=== PATIENT | female | born 1955 | race Asian ===

== ENCOUNTER 2016-05-09 13:33 | Emergency (ER) | payer MEDICAID, OTHER ==
[~2016-05-09] VITALS: Ht 165.1 cm; Wt 73.6 kg
[~2016-05-09 13:33] MED LIST: ACET-784 PO; HYDR12.530 PO; LISI-618 PO; METF500T4 PO
[2016-05-09 13:46] LABS: GLUCOSE,POINT OF CARE 266 MG/DL (70-110)
[2016-05-09] MEDS ORDERED: CloNIDine HCL 0.1 MG TABLET PO ONE (15:00)
[2016-05-09 15:11] LABS: BASOPHILS % (AUTO) 0.8 % (0.0-2.0); EOSINOPHILS % (AUTO) 1.6 % (1.0-6.0); HEMATOCRIT 40.6 % (36-46); HEMOGLOBIN 13.4 g/dL (12.0-16.0); LYMPHOCYTES # (AUTO) 2.3 K/uL (1.0-4.8); LYMPHOCYTES % (AUTO) 29.5 % (22.0-44.0); MEAN CORPUSCULAR HEMOGLOBIN 27.7 pg (26.0-34.0); MEAN CORPUSCULAR HGB CONC 33.1 G/dL (31.0-37.0); MEAN CORPUSCULAR VOLUME 84 fL (80-100); MONOCYTES # (AUTO) 0.5 K/uL (0.1-1.0); MONOCYTES % (AUTO) 6.1 % (2.0-9.0); NEUTROPHILS # (AUTO) 4.8 K/uL (1.8-7.7); PLATELET COUNT (AUTO) 302 K/uL (150-450); RED BLOOD CELL COUNT(AUTO) 4.85 MIL/uL (4.00-5.20); RED CELL DISTRIBUTION WIDTH 12.6 % (11.5-14.5); WHITE BLOOD COUNT (AUTO) 7.8 K/uL (4.5-11.0)
[2016-05-09 15:18] LABS: ANION GAP 10 mmol/L (8-16); CALCIUM, TOTAL 9.2 mg/dL (8.8-10.5); CARBON DIOXIDE 26 mmol/L (22-29); CHLORIDE 101 mmol/L (98-107); GLOMERULAR FILTR. RATE CALC > 60 mL/min (>60); POTASSIUM 4.2 mmol/L (3.5-5.1); SODIUM SERUM 137 mmol/L (136-145); UREA NITROGEN, BLOOD 18 mg/dL (7-18)
[2016-05-09 15:24] LABS: ALANINE AMINOTRANSFERASE 24 U/L (12-78); ALBUMIN 3.7 g/dL (3.4-5.0); ASPARTATE AMINOTRANSFERASE 15 U/L (15-37); BILIRUBIN,TOTAL 0.3 mg/dL (0.1-1.0); TOTAL PROTEIN, SERUM 7.6 g/dL (6.4-8.2)
[2016-05-09 15:26] LABS: APPEARANCE,URINE CLEAR (CLEAR); GLUCOSE, URINE (UA) >=1000 mg/dL (NEGATIVE); KETONES,URINE NEGATIVE (NEGATIVE); LEUKOCYTE ESTERASE ,URINE NEGATIVE (NEGATIVE); OCCULT BLOOD,URINE NEGATIVE (NEGATIVE); PROTEIN,URINE POS 1+ (NEGATIVE)
[2016-05-09 15:40] LABS: SQUAMOUS EPITHELIAL CELL,UR Few /LPF (None Seen)
[2016-05-09 15:41] LABS: WBC,URINE 0-2 /HPF (0-5)
[2016-05-09 15:42] LABS: RBC,URINE None Seen /HPF (0-2)
[2016-05-09 16:06] VITALS: BP 123/61
[2016-05-09] MEDS ORDERED: ACETAMINOPHEN 325 MG TABLET PO ONE (16:45)
== END 2016-05-09 17:00 | disposition home or self-care (01) ==
LOC: EMS 13:35
DX: I10 Essential (primary) hypertension (principal); R42 Dizziness and giddiness; E11.9 Type 2 diabetes mellitus without complications; G43.909 Migraine, unspecified, not intractable, without status migrainosus
CPT/HCPCS: 70450; 71020; 82962; 93005; 99285

== ENCOUNTER 2017-03-08 10:58 | Emergency (ER) | payer MEDICAID ==
[~2017-03-08] VITALS: Ht 152.4 cm; Wt 70.5 kg
[2017-03-08 11:18] LABS: GLUCOSE,POINT OF CARE 345 MG/DL (70-110)
[2017-03-08] MEDS ORDERED: HydrALAZINE HCL 20 MG/ML VIAL IVP ONE ×2 (12:15→13:00)
[2017-03-08] MEDS ORDERED: SODIUM CHLORIDE 0.9% 1,000 ML IV ONE (12:15)
[2017-03-08 12:18] LABS: BASOPHILS % (AUTO) 0.5 % (0.0-2.0); EOSINOPHILS % (AUTO) 1.5 % (1.0-6.0); HEMATOCRIT 42.2 % (36-46); HEMOGLOBIN 14.3 g/dL (12.0-16.0); LYMPHOCYTES # (AUTO) 2.4 K/uL (1.0-4.8); MEAN CORPUSCULAR HEMOGLOBIN 28.9 pg (26.0-34.0); MEAN CORPUSCULAR HGB CONC 33.9 G/dL (31.0-37.0); MEAN CORPUSCULAR VOLUME 85 fL (80-100); MONOCYTES # (AUTO) 0.5 K/uL (0.1-1.0); MONOCYTES % (AUTO) 5.5 % (2.0-9.0); NEUTROPHILS # (AUTO) 6.2 K/uL (1.8-7.7); NEUTROPHILS % (AUTO) 66.5 % (40.0-70.0); PLATELET COUNT (AUTO) 285 K/uL (150-450); RED BLOOD CELL COUNT(AUTO) 4.96 MIL/uL (4.00-5.20); RED CELL DISTRIBUTION WIDTH 13.4 % (11.5-14.5); WHITE BLOOD COUNT (AUTO) 9.3 K/uL (4.5-11.0)
[2017-03-08 12:33] LABS: ANION GAP 11 mmol/L (8-16); CALCIUM, TOTAL 9.3 mg/dL (8.8-10.5); CARBON DIOXIDE 26 mmol/L (22-29); CHLORIDE 97 mmol/L (98-107); CREATININE 0.83 mg/dL (0.60-1.30); GLOMERULAR FILTR. RATE CALC > 60 mL/min (>60); POTASSIUM 4.2 mmol/L (3.5-5.1); SODIUM SERUM 134 mmol/L (136-145); UREA NITROGEN, BLOOD 16 mg/dL (7-18)
[2017-03-08 12:39] LABS: ALANINE AMINOTRANSFERASE 26 U/L (12-78); ALBUMIN 3.8 g/dL (3.4-5.0); ASPARTATE AMINOTRANSFERASE 15 U/L (15-37); BILIRUBIN,TOTAL 0.3 mg/dL (0.1-1.0); TOTAL PROTEIN, SERUM 7.9 g/dL (6.4-8.2)
[2017-03-08 13:16] LABS: APPEARANCE,URINE CLEAR (CLEAR); GLUCOSE, URINE (UA) >=1000 mg/dL (NEGATIVE); KETONES,URINE NEGATIVE (NEGATIVE); LEUKOCYTE ESTERASE ,URINE TRACE (NEGATIVE); OCCULT BLOOD,URINE NEGATIVE (NEGATIVE); PROTEIN,URINE SEE CONFIRM (NEGATIVE)
[2017-03-08 13:30] LABS: ADD UA MICROSCOPIC YES
[2017-03-08 13:31] LABS: RBC,URINE 0-2 /HPF (0-2); SQUAMOUS EPITHELIAL CELL,UR Many /LPF (None Seen); SULFOSALICYLIC ACID,URINE 1+ (Negative); WBC,URINE 0-2 /HPF (0-5)
[2017-03-08 13:38] LABS: INFLUENZA TYPE B NEGATIVE FOR TYPE B (NEGATIVE)
[2017-03-08] MEDS ORDERED: KETOROLAC TROMETHAMINE 30 MG/ML VIAL IVP ONE (14:30)
[2017-03-08] MEDS ORDERED: ACETAMINOPHEN 500 MG TABLET PO ONE ×2 (14:30→17:00)
[2017-03-08 14:52] LABS: GLUCOSE,POINT OF CARE 271 MG/DL (70-110)
[2017-03-08] MEDS ORDERED: INSULIN REGULAR, HUMAN 100 UNITS/ML IVP ONE (15:00)
[2017-03-08 16:27] LABS: GLUCOSE COMMENT 2 Doctor Notified; GLUCOSE,POINT OF CARE 288 MG/DL (70-110)
[2017-03-08] MEDS ORDERED: OSELTAMIVIR PHOSPHATE 75 MG CAPSULE PO ONE (16:45)
[2017-03-08 16:50] VITALS: BP 172/83
[2017-03-08] MEDS ORDERED: MetFORMIN HCL 500 MG TABLET PO ONE (17:00)
== END 2017-03-08 17:08 | disposition home or self-care (01) ==
LOC: EMS 11:01
DX: I10 Essential (primary) hypertension (principal); R42 Dizziness and giddiness; R10.11 Right upper quadrant pain; E11.9 Type 2 diabetes mellitus without complications; G43.909 Migraine, unspecified, not intractable, without status migrainosus
CPT/HCPCS: 36415; 71010; 80053; 81001; 82948; 82962; 84484; 85025; 87804; 93005; 96361; 96374; 96375; 99285; J0360; J1815; J1885; J7030

== ENCOUNTER 2017-04-24 16:24 | Emergency (ER) | payer MEDICAID ==
[~2017-04-24] VITALS: Ht 165.1 cm; Wt 70.0 kg
[~2017-04-24 16:24] MED LIST changes: -ACET-784 PO
[2017-04-24 16:48] LABS: GLUCOSE,POINT OF CARE 433 MG/DL (70-110)
[2017-04-24 18:29] LABS: ALANINE AMINOTRANSFERASE 24 U/L (12-78); ALBUMIN 3.7 g/dL (3.4-5.0); ALKALINE PHOSPHATASE 98 U/L (46-116); ANION GAP 8 mmol/L (8-16); ASPARTATE AMINOTRANSFERASE 10 U/L (15-37); BILIRUBIN,TOTAL 0.4 mg/dL (0.1-1.0); CALCIUM, TOTAL 9.4 mg/dL (8.8-10.5); CARBON DIOXIDE 30 mmol/L (22-29); CHLORIDE 98 mmol/L (98-107); CREATININE 0.79 mg/dL (0.60-1.30); GLOMERULAR FILTR. RATE CALC > 60 mL/min (>60); POTASSIUM 4.3 mmol/L (3.5-5.1); SODIUM SERUM 136 mmol/L (136-145); TOTAL PROTEIN, SERUM 7.5 g/dL (6.4-8.2); UREA NITROGEN, BLOOD 17 mg/dL (7-18)
[2017-04-24 18:38] LABS: GLUCOSE,RANDOM 403 mg/dL (70-110)
[2017-04-24 18:49] LABS: BASOPHILS % (AUTO) 0.7 % (0.0-2.0); EOSINOPHILS % (AUTO) 2.1 % (1.0-6.0); HEMATOCRIT 38.8 % (36-46); HEMOGLOBIN 13.3 g/dL (12.0-16.0); LYMPHOCYTES # (AUTO) 2.9 K/uL (1.0-4.8); LYMPHOCYTES % (AUTO) 38.7 % (22.0-44.0); MEAN CORPUSCULAR HEMOGLOBIN 28.2 pg (26.0-34.0); MEAN CORPUSCULAR HGB CONC 34.3 G/dL (31.0-37.0); MEAN CORPUSCULAR VOLUME 82 fL (80-100); MONOCYTES # (AUTO) 0.6 K/uL (0.1-1.0); MONOCYTES % (AUTO) 8.3 % (2.0-9.0); NEUTROPHILS # (AUTO) 3.8 K/uL (1.8-7.7); NEUTROPHILS % (AUTO) 50.2 % (40.0-70.0); PLATELET COUNT (AUTO) 264 K/uL (150-450); RED BLOOD CELL COUNT(AUTO) 4.72 MIL/uL (4.00-5.20); RED CELL DISTRIBUTION WIDTH 12.5 % (11.5-14.5)
[2017-04-24] MEDS ORDERED: LISINOPRIL 10 MG TABLET PO ONE (19:00)
[2017-04-24] MEDS ORDERED: INSULIN REGULAR, HUMAN 100 UNITS/ML SQ ONE (19:00)
[2017-04-24] MEDS ORDERED: SODIUM CHLORIDE 0.9% 1,000 ML IV ONE (19:00)
[2017-04-24 19:19] LABS: INR 0.9 (0.9-1.1); PROTHROMBIN TIME 9.6 SEC (9.4-11.6)
[2017-04-24 19:28] LABS: CREATINE KINASE, TOTAL 109 U/L (26-192)
[2017-04-24 19:53] LABS: CREATINE KINASE MB 1.2 ng/mL (0-5)
[2017-04-24 20:08] LABS: APPEARANCE,URINE CLEAR (CLEAR); BILIRUBIN,URINE NEGATIVE (NEGATIVE); GLUCOSE, URINE (UA) >=1000 mg/dL (NEGATIVE); KETONES,URINE NEGATIVE (NEGATIVE); LEUKOCYTE ESTERASE ,URINE NEGATIVE (NEGATIVE); NITRATE,URINE NEGATIVE (NEGATIVE); OCCULT BLOOD,URINE NEGATIVE (NEGATIVE); PROTEIN,URINE TRACE (NEGATIVE); UROBILINOGEN,URINE 0.2 mg/dL (<=1.0)
[2017-04-24 20:22] LABS: BACTERIA,URINE Rare /HPF (None Seen); RBC,URINE None Seen /HPF (0-2); SQUAMOUS EPITHELIAL CELL,UR Few /LPF (None Seen)
[2017-04-24 20:48] LABS: GLUCOSE,POINT OF CARE 256 MG/DL (70-110)
[2017-04-24] MEDS ORDERED: ACETAMINOPHEN 325 MG TABLET PO ONE (21:00)
[2017-04-24] MEDS ORDERED: FAMOTIDINE 20 MG TABLET PO ONE (21:00)
[2017-04-24 21:15] VITALS: BP 177/91
== END 2017-04-24 21:24 | disposition home or self-care (01) ==
LOC: EMS 16:25
DX: E11.9 Type 2 diabetes mellitus without complications (principal); I10 Essential (primary) hypertension; R42 Dizziness and giddiness
CPT/HCPCS: 36415; 71045; 80053; 81001; 82550; 82553; 82962; 83880; 84484; 85025; 85610; 85730; 93005; 96360; 96372; 99285; J1815; J7030

== ENCOUNTER 2019-02-07 12:28 | Emergency (ER) | payer MEDICAID ==
[~2019-02-07] VITALS: Ht 154.9 cm; Wt 79.5 kg
[~2019-02-07 12:28] MED LIST changes: +INSLAN SQ; +METF-960 PO; -METF500T4 PO
[2019-02-07 12:55] LABS: GLUCOSE,POINT OF CARE 252 MG/DL (70-110)
[2019-02-07 13:51] LABS: EOSINOPHILS % (AUTO) 2.8 % (1.0-6.0); HEMATOCRIT 36.5 % (36-46); HEMOGLOBIN 12.2 g/dL (12.0-16.0); LYMPHOCYTES # (AUTO) 2.7 K/uL (1.0-4.8); LYMPHOCYTES % (AUTO) 35.5 % (22.0-44.0); MEAN CORPUSCULAR HEMOGLOBIN 28.1 pg (26.0-34.0); MEAN CORPUSCULAR HGB CONC 33.4 G/dL (31.0-37.0); MEAN CORPUSCULAR VOLUME 84 fL (80-100); MONOCYTES # (AUTO) 0.6 K/uL (0.1-1.0); MONOCYTES % (AUTO) 8.1 % (2.0-9.0); NEUTROPHILS # (AUTO) 3.9 K/uL (1.8-7.7); NEUTROPHILS % (AUTO) 52.6 % (40.0-70.0); PLATELET COUNT (AUTO) 294 K/uL (150-450); RED BLOOD CELL COUNT(AUTO) 4.34 MIL/uL (4.00-5.20); RED CELL DISTRIBUTION WIDTH 13.2 % (11.5-14.5)
[2019-02-07 14:06] LABS: APPEARANCE,URINE CLEAR (CLEAR); BILIRUBIN,URINE NEGATIVE (NEGATIVE); GLUCOSE, URINE (UA) >=1000 mg/dL (NEGATIVE); KETONES,URINE NEGATIVE (NEGATIVE); LEUKOCYTE ESTERASE ,URINE NEGATIVE (NEGATIVE); NITRATE,URINE NEGATIVE (NEGATIVE); OCCULT BLOOD,URINE NEGATIVE (NEGATIVE); PH,URINE 6.5 (5.0-8.0); PROTEIN,URINE SEE CONFIRM (NEGATIVE); UROBILINOGEN,URINE 0.2 mg/dL (<=1.0)
[2019-02-07 14:19] LABS: BACTERIA,URINE None Seen /HPF (None Seen); RBC,URINE None Seen /HPF (0-2); SULFOSALICYLIC ACID,URINE 1+ (Negative); WBC,URINE None Seen /HPF (0-5)
[2019-02-07 14:23] LABS: CALCIUM, TOTAL 9.1 mg/dL (8.8-10.5); CREATININE 1.11 mg/dL (0.60-1.30); POTASSIUM 5.2 mmol/L (3.5-5.1)
[2019-02-07 14:41] LABS: B-TYPE NATRIURETIC PEPTIDE 130 pg/mL (0-100)
[2019-02-07 14:49] LABS: ALBUMIN 3.7 g/dL (3.4-5.0); BILIRUBIN,TOTAL 0.3 mg/dL (0.1-1.0); TOTAL PROTEIN, SERUM 7.6 g/dL (6.4-8.2)
[2019-02-07 15:07] LABS: CREATINE KINASE, TOTAL ONLY 167 U/L (26-192)
[2019-02-07 17:17] VITALS: BP 136/79
== END 2019-02-07 17:21 | disposition home or self-care (01) ==
LOC: EMS 12:29
DX: G47.00 Insomnia, unspecified (principal); F41.9 Anxiety disorder, unspecified; F43.9 Reaction to severe stress, unspecified; M79.10 Myalgia, unspecified site; E11.65 Type 2 diabetes mellitus with hyperglycemia; G43.909 Migraine, unspecified, not intractable, without status migrainosus; I10 Essential (primary) hypertension; Z90.710 Acquired absence of both cervix and uterus; Z79.84 Long term (current) use of oral hypoglycemic drugs; Z79.4 Long term (current) use of insulin; Z79.899 Other long term (current) drug therapy
CPT/HCPCS: 93005

== ENCOUNTER 2023-04-25 10:42 | Inpatient (IN) | payer MEDICARE, MEDICAID ==
[~2023-04-25] VITALS: Ht 149.9 cm; Wt 80.0 kg
[~2023-04-25 10:42] MED LIST changes: -HYDR12.530 PO; +HYDR12.56 PO; -LISI-618 PO; +LISI20TA24 PO; +METF-1211 PO; -METF-960 PO
[2023-04-25] MEDS ORDERED: CLOP75TA60 PO (11:05)
[2023-04-25] MEDS ORDERED: NITR0.4T52 SL (11:05)
[2023-04-25] MEDS ORDERED: PANT-31 PO (11:05)
[2023-04-25] MEDS ORDERED: FURO40 PO (11:05)
[2023-04-25] MEDS ORDERED: ATOR40TA28 PO (11:05)
[2023-04-25] MEDS ORDERED: ESCI-8 PO (11:05)
[2023-04-25] MEDS ORDERED: INSU100V SQ ×2 (11:05)
[2023-04-25] MEDS ORDERED: BUSP5TAB20 PO (11:05)
[2023-04-25] MEDS ORDERED: DULA1.5P SQ (11:07)
[2023-04-25] MEDS ORDERED: SODI650T33 PO (11:07)
[2023-04-25 11:17] LABS: BASOPHILS % (AUTO) 0.6 % (0.0-2.0); EOSINOPHILS % (AUTO) 0.5 % (1.0-6.0); HEMATOCRIT 33.4 % (36-46); HEMOGLOBIN 10.9 g/dL (12.0-16.0); LYMPHOCYTES # (AUTO) 0.8 K/uL (1.0-4.8); MEAN CORPUSCULAR HEMOGLOBIN 28.1 pg (26.0-34.0); MEAN CORPUSCULAR HGB CONC 32.5 G/dL (31.0-37.0); MEAN CORPUSCULAR VOLUME 86 fL (80-100); MONOCYTES # (AUTO) 0.7 K/uL (0.1-1.0); MONOCYTES % (AUTO) 6.1 % (2.0-9.0); NEUTROPHILS # (AUTO) 9.9 K/uL (1.8-7.7); PLATELET COUNT (AUTO) 360 K/uL (150-450); RED BLOOD CELL COUNT(AUTO) 3.87 MIL/uL (4.00-5.20); RED CELL DISTRIBUTION WIDTH 15.6 % (11.5-14.5); WHITE BLOOD COUNT (AUTO) 11.5 K/uL (4.5-11.0)
[2023-04-25 11:20] LABS: NEUTROPHILS % (AUTO) 85.8 % (40.0-70.0)
[2023-04-25 11:30] LABS: PROTHROMBIN TIME 10.2 SEC (9.4-11.6)
[2023-04-25 11:37] LABS: CALCIUM, TOTAL 8.2 mg/dL (8.8-10.5); CREATININE 2.54 mg/dL (0.60-1.30); POTASSIUM 3.1 mmol/L (3.5-5.1); TROPONIN I-HIGH SENSITIVITY 43 ng/L (<51)
[2023-04-25 11:41] LABS: ALBUMIN 1.7 g/dL (3.4-5.0); BILIRUBIN,TOTAL 0.2 mg/dL (0.1-1.0)
[2023-04-25] MEDS ORDERED: BISACODYL 10 MG RECTAL RECTAL SUPPOSITORY PR PRN (13:00)
[2023-04-25] MEDS ORDERED: ONDANSETRON HCL 4 MG/2 ML VIAL IVP PRN (13:00)
[2023-04-25] MEDS ORDERED: AMLO5TAB66 PO (13:02)
[2023-04-25] MEDS ORDERED: EMPA10TA3 PO (13:02)
[2023-04-25] MEDS ORDERED: SODI10PO2 PO (13:02)
[2023-04-25] MEDS ORDERED: METO50 PO (13:02)
[2023-04-25] MEDS: FUROSEMIDE 40 MG/4 ML VIAL IVP ONE (13:14)
[2023-04-25] MEDS: POTASSIUM CHLORIDE 10% 40 MEQ/30 ML LIQUID UDCUP PO ONE (14:08)
[2023-04-25 15:53] LABS: APPEARANCE,URINE CLEAR (CLEAR); BILIRUBIN,URINE NEGATIVE (NEGATIVE); COLOR,URINE LIGHT YELLOW (YELLOW); GLUCOSE, URINE (UA) 300-500 mg/dL (NEGATIVE); KETONES,URINE NEGATIVE (NEGATIVE); LEUKOCYTE ESTERASE ,URINE NEGATIVE (NEGATIVE); NITRATE,URINE NEGATIVE (NEGATIVE); OCCULT BLOOD,URINE NEGATIVE (NEGATIVE); PH,URINE 7.5 (5.0-8.0); PROTEIN,URINE >600,SEE CONFIRM mg/dL (NEGATIVE); SPECIFIC GRAVITIY, URINE 1.019 (1.003-1.030); UROBILINOGEN,URINE <=1.0 mg/dL (<=1.0)
[2023-04-25] MEDS: HEPARIN SODIUM,PORCINE 5,000 UNITS/ML VIAL SQ SCH (16:00)
[2023-04-25 16:50] LABS: SULFOSALICYLIC ACID,URINE 4+ (Negative)
[2023-04-25 16:51] LABS: BACTERIA,URINE Many /HPF (None Seen); RBC,URINE None Seen /HPF (0-2)
[2023-04-25] MEDS: AmLODIPine BESYLATE 10 MG TABLET PO SCH (16:59)
[2023-04-25] MEDS: ACETAMINOPHEN 325 MG TABLET PO PRN (17:04)
[2023-04-25 18:50] VITALS: BP 160/86; PULSE 50; RESP 20; TEMP 97.8; O2SAT 100
[2023-04-25] MEDS ORDERED: 0.9% SODIUM CHLORIDE 5 ML NEB SOLUTION NEB ONE ×2 (19:19→21:37)
[2023-04-25] MEDS: ALBUTEROL SULFATE 2.5 MG/0.5 ML NEB SOLUTION NEB ONE ×2 (19:25→22:08)
[2023-04-25 19:29] VITALS: PULSE 51; RESP 18; O2SAT 99
[2023-04-25 19:30] VITALS: PULSE 51; RESP 18; O2SAT 99
[2023-04-25 20:00] VITALS: BP 152/67; PULSE 54; RESP 21; TEMP 98; O2SAT 99
[2023-04-25] MEDS: DOCUSATE SODIUM 100 MG CAPSULE PO SCH (20:53)
[2023-04-25] MEDS ORDERED: IPRATROPIUM BROMIDE 0.5 MG/2.5 ML NEB SOLUTION NEB PRN (21:45)
[2023-04-25 23:03] LABS: INFLUENZA A-RTPCR,COMBO NEGATIVE (NEGATIVE); INFLUENZA B-RTPCR,COMBO NEGATIVE (NEGATIVE); RESPIRATORY SYNCYTIAL VRS-PCR NEGATIVE (NEGATIVE); SARS COVID19 RTPCR, COMBO NEGATIVE (NEGATIVE)
[2023-04-25 23:55] VITALS: BP 136/72; PULSE 54; RESP 21; TEMP 97.6; O2SAT 99
[2023-04-26] VITALS (7 sets, daily range): BP systolic 147–167; BP diastolic 63–99; PULSE 57–79; RESP 18–24; TEMP 97.6–98.5; O2SAT 94–99
[2023-04-26] MEDS: DEXTROSE 50%-WATER 25 GM/50 ML SYRINGE IVP PRN (06:24)
[2023-04-26 06:36] LABS: GLUCOMETER DEV NAME(LOC) 5N.1C; GLUCOSE,POINT OF CARE 50 MG/DL (70-110)
[2023-04-26 06:36] LABS: GLUCOMETER DEV NAME(LOC) 5N.1C; GLUCOSE,POINT OF CARE 106 MG/DL (70-110)
[2023-04-26 06:36] LABS: GLUCOMETER DEV NAME(LOC) 5N.1C; GLUCOSE,POINT OF CARE 131 MG/DL (70-110)
[2023-04-26 06:36] LABS: GLUCOMETER DEV NAME(LOC) 5N.1C; GLUCOSE,POINT OF CARE 79 MG/DL (70-110)
[2023-04-26] MEDS: ATORVASTATIN CALCIUM 20 MG TABLET PO SCH (08:23)
[2023-04-26] MEDS: ASPIRIN 81 MG CHEWABLE TABLET PO SCH (08:23)
[2023-04-26] MEDS: FAMOTIDINE 20 MG TABLET PO SCH (08:23)
[2023-04-26] MEDS: LOSARTAN POTASSIUM 25 MG TABLET PO SCH (12:16)
[2023-04-26 12:21] LABS: GLUCOMETER DEV NAME(LOC) 5N.1C; GLUCOSE,POINT OF CARE 147 MG/DL (70-110)
[2023-04-26 12:21] LABS: GLUCOMETER DEV NAME(LOC) 5N.1C; GLUCOSE,POINT OF CARE 146 MG/DL (70-110)
[2023-04-26 12:36] LABS: GLUCOMETER DEV NAME(LOC) 5N.1C; GLUCOSE,POINT OF CARE 129 MG/DL (70-110)
[2023-04-26] MEDS: PredniSONE 20 MG TABLET PO SCH (18:12)
[2023-04-26] MEDS ORDERED: 0.9% SODIUM CHLORIDE 5 ML NEB SOLUTION NEB ONE (18:27)
[2023-04-26] MEDS: ALBUTEROL SULFATE 2.5 MG/0.5 ML NEB SOLUTION NEB PRN (18:32)
[2023-04-26] MEDS: INSULIN LISPRO 100 UNITS/ML SQ PRN (21:25)
[2023-04-27] VITALS (12 sets, daily range): BP systolic 113–165; BP diastolic 57–75; PULSE 75–97; RESP 18–22; TEMP 98–98.6; O2SAT 93–99
[2023-04-27 02:06] LABS: GLUCOMETER DEV NAME(LOC) 5N.1C; GLUCOSE,POINT OF CARE 126 MG/DL (70-110)
[2023-04-27 02:06] LABS: GLUCOMETER DEV NAME(LOC) 5N.1C; GLUCOSE,POINT OF CARE 237 MG/DL (70-110)
[2023-04-27 08:51] LABS: BASOPHILS % (AUTO) 0.2 % (0.0-2.0); EOSINOPHILS % (AUTO) 0 % (1.0-6.0); HEMATOCRIT 29.5 % (36-46); HEMOGLOBIN 9.5 g/dL (12.0-16.0); LYMPHOCYTES # (AUTO) 0.5 K/uL (1.0-4.8); LYMPHOCYTES % (AUTO) 5.2 % (22.0-44.0); MEAN CORPUSCULAR HEMOGLOBIN 27.9 pg (26.0-34.0); MEAN CORPUSCULAR VOLUME 87 fL (80-100); MONOCYTES # (AUTO) 0.3 K/uL (0.1-1.0); PLATELET COUNT (AUTO) 337 K/uL (150-450); RED CELL DISTRIBUTION WIDTH 15.5 % (11.5-14.5); WHITE BLOOD COUNT (AUTO) 9.8 K/uL (4.5-11.0)
[2023-04-27 08:57] LABS: CALCIUM, TOTAL 8.2 mg/dL (8.8-10.5); CREATININE 2.71 mg/dL (0.60-1.30); NEUTROPHILS % (AUTO) 91.6 % (40.0-70.0); POTASSIUM 4.2 mmol/L (3.5-5.1)
[2023-04-27] MEDS ORDERED: FUROSEMIDE 20 MG/2 ML VIAL IVP SCH (11:45)
[2023-04-27] MEDS: FUROSEMIDE 20 MG/2 ML VIAL IVP SCH (11:57)
[2023-04-27] MEDS: LOSARTAN POTASSIUM 25 MG TABLET PO ONE (11:57)
[2023-04-27 12:01] LABS: GLUCOMETER DEV NAME(LOC) 5N.2C; GLUCOSE,POINT OF CARE 188 MG/DL (70-110)
[2023-04-27 12:06] LABS: GLUCOMETER DEV NAME(LOC) 5N.1C; GLUCOSE,POINT OF CARE 157 MG/DL (70-110)
[2023-04-27 15:54] LABS: CREATININE,URINE RANDOM 62.5 mg/dL (30.0-125.0); SODIUM,URINE RANDOM 21 mmol/l (20-110); UREA NITROGEN,URINE RANDOM 397 mg/dL (350-1000)
[2023-04-27 18:11] LABS: GLUCOMETER DEV NAME(LOC) 5N.1C; GLUCOSE,POINT OF CARE 298 MG/DL (70-110)
[2023-04-27] MEDS ORDERED: 0.9% SODIUM CHLORIDE 5 ML NEB SOLUTION NEB ONE (18:58)
[2023-04-27] MEDS: LOSARTAN POTASSIUM 50 MG TABLET PO SCH (20:55)
[2023-04-27 21:21] LABS: GLUCOMETER DEV NAME(LOC) 5N.1C; GLUCOSE,POINT OF CARE 256 MG/DL (70-110)
[2023-04-28] VITALS (9 sets, daily range): BP systolic 140–165; BP diastolic 71–91; PULSE 70–91; RESP 18–20; TEMP 97.8–98.5; O2SAT 96–98
[2023-04-28 08:06] LABS: GLUCOMETER DEV NAME(LOC) 5N.2C; GLUCOSE,POINT OF CARE 136 MG/DL (70-110)
[2023-04-28] MEDS ORDERED: 0.9% SODIUM CHLORIDE 5 ML NEB SOLUTION NEB ONE ×2 (08:25→14:38)
[2023-04-28] MEDS: BUMETANIDE 0.25 MG/ML 4 ML VIAL IVP SCH (09:07)
[2023-04-28] MEDS: CARVEDILOL 3.125 MG TABLET PO SCH (09:12)
[2023-04-28 17:46] LABS: GLUCOMETER DEV NAME(LOC) 5N.1C; GLUCOSE,POINT OF CARE 168 MG/DL (70-110)
[2023-04-28 17:46] LABS: GLUCOMETER DEV NAME(LOC) 5N.1C; GLUCOSE,POINT OF CARE 173 MG/DL (70-110)
[2023-04-29] VITALS (17 sets, daily range): BP systolic 148–156; BP diastolic 80–98; PULSE 64–82; RESP 16–23; TEMP 97.6–97.9; O2SAT 84–100
[2023-04-29 03:26] LABS: GLUCOMETER DEV NAME(LOC) 5N.2C; GLUCOSE,POINT OF CARE 252 MG/DL (70-110)
[2023-04-29 07:37] LABS: CALCIUM, TOTAL 8.4 mg/dL (8.8-10.5); CREATININE 2.85 mg/dL (0.60-1.30); MAGNESIUM 2.4 mg/dL (1.80-2.40); PHOSPHORUS 6.7 mg/dL (2.5-4.9); POTASSIUM 5.4 mmol/L (3.5-5.1)
[2023-04-29 07:40] LABS: HEMOGLOBIN A1C 6.6 % (3.8-5.6)
[2023-04-29 08:01] LABS: GLUCOMETER DEV NAME(LOC) 5N.2C; GLUCOSE,POINT OF CARE 130 MG/DL (70-110)
[2023-04-29] MEDS: BUMETANIDE 0.25 MG/ML 4 ML VIAL IVP SCH ×2 (09:20→20:26)
[2023-04-29] MEDS ORDERED: 0.9% SODIUM CHLORIDE 5 ML NEB SOLUTION NEB ONE (13:19)
[2023-04-29 13:56] LABS: GLUCOMETER DEV NAME(LOC) 5N.1C; GLUCOSE,POINT OF CARE 172 MG/DL (70-110)
[2023-04-29 14:06] LABS: ABG BASE EXCESS -2.9 mmol/L (-2.0-3.0); ABG CARBOXYHEMOGLOBIN 0.5 % (0.0-1.5); ABG HCO3 21.8 mmol/L (22.0-26.0); ABG METHEMOGLOBIN 0.3 % (0.0-1.5); ABG OXYGEN CONTENT 14.6 mL/dL (15.0-23.0); ABG OXYHEMOGLOBIN 92.3 % (94.0-100.0); ABG PCO2 48 mmHg (35-45); ABG PH 7.305 (7.35-7.450); ABG TOTAL HEMOGLOBIN 11.2 G/dL (12.0-18.0); PO2, ARTERIAL BG 66.1 mmHg (79.0-87.0); SOURCE, BLOOD GAS ARTERIAL
[2023-04-29 14:07] LABS: ABG A-A DIFF O2 599.6 mmHg (10-20.0); ALLEN TEST, BLOOD GAS Positive; O2 DEVICE,BLOOD GAS BIPAP (ROOM AIR); SITE, BLOOD GAS RT RADIAL
[2023-04-29 14:08] LABS: SPONTANEOUS VT, BG 571 ml
[2023-04-29] MEDS: MethylPREDNISolone SOD SUCC 125 MG/2 ML VIAL IVP SCH (14:31)
[2023-04-29 15:32] LABS: ABG BASE EXCESS -1.9 mmol/L (-2.0-3.0); ABG CARBOXYHEMOGLOBIN 0.2 % (0.0-1.5); ABG HCO3 22.8 mmol/L (22.0-26.0); ABG METHEMOGLOBIN 0.1 % (0.0-1.5); ABG OXYGEN CONTENT 15.6 mL/dL (15.0-23.0); ABG OXYGEN SATURATION 99.4 % (95.0-98.0); ABG OXYHEMOGLOBIN 99.1 % (94.0-100.0); ABG PCO2 47 mmHg (35-45); ABG PH 7.329 (7.35-7.450); ABG TOTAL HEMOGLOBIN 10.8 G/dL (12.0-18.0); ALLEN TEST, BLOOD GAS Positive; SITE, BLOOD GAS RT RADIAL; SOURCE, BLOOD GAS ARTERIAL; TEMPERATURE, FAHRENHEIT, BG 98.6 FAHREN (96.0-98.6)
[2023-04-29 15:33] LABS: ABG A-A DIFF O2 438.2 mmHg (10-20.0); O2 DEVICE,BLOOD GAS BIPAP (ROOM AIR); SPONTANEOUS VT, BG 450 ml
[2023-04-29] MEDS: IPRATROPIUM BROMIDE 0.5 MG/2.5 ML NEB SOLUTION NEB SCH (15:37)
[2023-04-29] MEDS: ALBUTEROL SULFATE 2.5 MG/0.5 ML NEB SOLUTION NEB SCH (15:37)
[2023-04-29] MEDS: ALBUMIN HUMAN 25%-25GM/100ML 100 ML IV SCH (18:14)
[2023-04-29] MEDS: CHLOROTHIAZIDE SODIUM 500 MG VIAL IVP ONE (18:14)
[2023-04-29 20:12] LABS: GLUCOMETER DEV NAME(LOC) ICU.S6; GLUCOSE,POINT OF CARE 196 MG/DL (70-110)
[2023-04-29 21:46] LABS: GLUCOMETER DEV NAME(LOC) ICU.S6; GLUCOSE,POINT OF CARE 146 MG/DL (70-110)
[2023-04-30] VITALS (31 sets, daily range): BP systolic 120–180; BP diastolic 40–74; PULSE 61–96; RESP 14–20; TEMP 97.6–98.8; O2SAT 91–100
[2023-04-30] MEDS: HydrALAZINE HCL 20 MG/ML VIAL IVP PRN (00:42)
[2023-04-30 05:46] LABS: BASOPHILS % (AUTO) 1.1 % (0.0-2.0); EOSINOPHILS % (AUTO) 0 % (1.0-6.0); HEMATOCRIT 30.3 % (36-46); HEMOGLOBIN 9.9 g/dL (12.0-16.0); LYMPHOCYTES # (AUTO) 0.3 K/uL (1.0-4.8); LYMPHOCYTES % (AUTO) 2.1 % (22.0-44.0); MEAN CORPUSCULAR HGB CONC 32.5 G/dL (31.0-37.0); MEAN CORPUSCULAR VOLUME 86 fL (80-100); MONOCYTES % (AUTO) 0.4 % (2.0-9.0); NEUTROPHILS # (AUTO) 11.4 K/uL (1.8-7.7); PLATELET COUNT (AUTO) 330 K/uL (150-450); RED BLOOD CELL COUNT(AUTO) 3.53 MIL/uL (4.00-5.20); RED CELL DISTRIBUTION WIDTH 15.5 % (11.5-14.5); WHITE BLOOD COUNT (AUTO) 11.9 K/uL (4.5-11.0)
[2023-04-30 05:48] LABS: NEUTROPHILS % (AUTO) 96.4 % (40.0-70.0)
[2023-04-30 05:52] LABS: CALCIUM, TOTAL 8.8 mg/dL (8.8-10.5); CREATININE 2.81 mg/dL (0.60-1.30); MAGNESIUM 2.4 mg/dL (1.80-2.40); PHOSPHORUS 7.1 mg/dL (2.5-4.9); POTASSIUM 5.8 mmol/L (3.5-5.1)
[2023-04-30 06:26] LABS: GLUCOMETER DEV NAME(LOC) ICU.S6; GLUCOSE,POINT OF CARE 181 MG/DL (70-110)
[2023-04-30 07:13] LABS: ABG BASE EXCESS -2.1 mmol/L (-2.0-3.0); ABG CARBOXYHEMOGLOBIN 0.3 % (0.0-1.5); ABG HCO3 22.6 mmol/L (22.0-26.0); ABG METHEMOGLOBIN 0.3 % (0.0-1.5); ABG OXYGEN CONTENT 13.5 mL/dL (15.0-23.0); ABG OXYHEMOGLOBIN 91.4 % (94.0-100.0); ABG PCO2 44 mmHg (35-45); ABG PH 7.345 (7.35-7.450); ABG TOTAL HEMOGLOBIN 10.5 G/dL (12.0-18.0); PO2, ARTERIAL BG 61.5 mmHg (79.0-87.0); SOURCE, BLOOD GAS ARTERIAL
[2023-04-30 07:14] LABS: ABG A-A DIFF O2 173.2 mmHg (10-20.0); ALLEN TEST, BLOOD GAS Positive; O2 DEVICE,BLOOD GAS BIPAP (ROOM AIR); SITE, BLOOD GAS LFT RADIAL
[2023-04-30 07:16] LABS: INSPIRATORY TIME, BG 0.9 SEC; SPONTANEOUS VT, BG 695 ml
[2023-04-30 08:06] LABS: PARATHYROID HORMONE INTACT 117 pg/mL (15-65)
[2023-04-30] MEDS: SODIUM POLYSTYRENE SULFONATE 15 GM/60 ML SUSPENSION BOTTLE PO ONE (09:04)
[2023-04-30] MEDS: HEPARIN SODIUM,PORCINE 1,000 UNITS/ML VIAL IVP ONE ×2 (12:36)
[2023-04-30] MEDS: CALCITRIOL 0.25 MCG CAPSULE PO SCH (13:27)
[2023-04-30 17:57] LABS: GLUCOMETER DEV NAME(LOC) ICU.S6; GLUCOSE,POINT OF CARE 164 MG/DL (70-110)
[2023-04-30 17:57] LABS: GLUCOMETER DEV NAME(LOC) ICUN.5; GLUCOSE,POINT OF CARE 127 MG/DL (70-110)
[2023-04-30 21:06] LABS: GLUCOMETER DEV NAME(LOC) ICU.S6; GLUCOSE,POINT OF CARE 209 MG/DL (70-110)
[2023-05-01] VITALS (28 sets, daily range): BP systolic 113–175; BP diastolic 52–99; PULSE 76–99; RESP 12–21; TEMP 98–98.8; O2SAT 90–100
[2023-05-01 06:01] LABS: EOSINOPHILS % (AUTO) 0 % (1.0-6.0); HEMATOCRIT 24.2 % (36-46); LYMPHOCYTES # (AUTO) 0.2 K/uL (1.0-4.8); LYMPHOCYTES % (AUTO) 3.3 % (22.0-44.0); MEAN CORPUSCULAR HEMOGLOBIN 28.6 pg (26.0-34.0); MEAN CORPUSCULAR HGB CONC 33.2 G/dL (31.0-37.0); MEAN CORPUSCULAR VOLUME 86 fL (80-100); MONOCYTES # (AUTO) 0.2 K/uL (0.1-1.0); MONOCYTES % (AUTO) 2.5 % (2.0-9.0); NEUTROPHILS # (AUTO) 6.9 K/uL (1.8-7.7); PLATELET COUNT (AUTO) 266 K/uL (150-450); RED CELL DISTRIBUTION WIDTH 14.9 % (11.5-14.5); WHITE BLOOD COUNT (AUTO) 7.4 K/uL (4.5-11.0)
[2023-05-01 06:13] LABS: CALCIUM, TOTAL 8.2 mg/dL (8.8-10.5); CREATININE 1.92 mg/dL (0.60-1.30); PHOSPHORUS 5.3 mg/dL (2.5-4.9); POTASSIUM 4.2 mmol/L (3.5-5.1)
[2023-05-01 06:14] LABS: NEUTROPHILS % (AUTO) 94.2 % (40.0-70.0)
[2023-05-01 06:51] LABS: GLUCOMETER DEV NAME(LOC) ICU.S6; GLUCOSE,POINT OF CARE 161 MG/DL (70-110)
[2023-05-01] MEDS ORDERED: SODIUM CHLORIDE 0.9% 2,000 ML ONE (10:39)
[2023-05-01 11:41] LABS: GLUCOMETER DEV NAME(LOC) ICUN.5; GLUCOSE,POINT OF CARE 169 MG/DL (70-110)
[2023-05-01] MEDS: HEPARIN SODIUM,PORCINE 1,000 UNITS/ML VIAL IVCATH ONE ×2 (15:09)
[2023-05-01 18:42] LABS: GLUCOMETER DEV NAME(LOC) 5S.1B; GLUCOSE,POINT OF CARE 197 MG/DL (70-110)
[2023-05-02] VITALS (19 sets, daily range): BP systolic 134–177; BP diastolic 57–79; PULSE 80–100; RESP 16–20; TEMP 98–98.4; O2SAT 94–100
[2023-05-02 08:06] LABS: % IRON SATURATION 49.1 % (22-44)
[2023-05-02] MEDS: EPOETIN ALFA 10,000 UNITS/ML 2 ML VIAL SQ SCH (09:00)
[2023-05-02 12:31] LABS: GLUCOMETER DEV NAME(LOC) 5N.1C; GLUCOSE,POINT OF CARE 290 MG/DL (70-110)
[2023-05-02 12:56] LABS: GLUCOMETER DEV NAME(LOC) 5S.1B; GLUCOSE,POINT OF CARE 259 MG/DL (70-110)
[2023-05-02 12:56] LABS: GLUCOMETER DEV NAME(LOC) 5S.1B; GLUCOSE,POINT OF CARE 164 MG/DL (70-110)
[2023-05-02] MEDS: CHLORHEXIDINE GLUCONATE 2% TOWELETTE [2'S/6'S] TP SCH (21:14)
[2023-05-03] VITALS (16 sets, daily range): BP systolic 129–160; BP diastolic 58–89; PULSE 79–100; RESP 16–20; TEMP 98–98.7; O2SAT 95–100
[2023-05-03 02:21] LABS: GLUCOMETER DEV NAME(LOC) 5S.1B; GLUCOSE,POINT OF CARE 334 MG/DL (70-110)
[2023-05-03 02:21] LABS: GLUCOMETER DEV NAME(LOC) 5N.1C; GLUCOSE,POINT OF CARE 311 MG/DL (70-110)
[2023-05-03 07:51] LABS: GLUCOMETER DEV NAME(LOC) 5N.1C; GLUCOSE,POINT OF CARE 203 MG/DL (70-110)
[2023-05-03] MEDS: PredniSONE 20 MG TABLET PO SCH (08:34)
[2023-05-03] MEDS ORDERED: BUMETANIDE 0.25 MG/ML 4 ML VIAL IVP SCH (13:30)
[2023-05-03 14:32] LABS: GLUCOMETER DEV NAME(LOC) 5N.1C; GLUCOSE,POINT OF CARE 190 MG/DL (70-110)
[2023-05-03] MEDS: BUMETANIDE 0.25 MG/ML 10 ML VIAL IVP SCH (17:41)
[2023-05-03 19:17] LABS: GLUCOMETER DEV NAME(LOC) 5N.1C; GLUCOSE,POINT OF CARE 284 MG/DL (70-110)
[2023-05-03 22:51] LABS: GLUCOMETER DEV NAME(LOC) 5N.1C; GLUCOSE,POINT OF CARE 391 MG/DL (70-110)
[2023-05-04] VITALS (16 sets, daily range): BP systolic 130–162; BP diastolic 58–85; PULSE 80–98; RESP 18–20; TEMP 98–98.7; O2SAT 98–100
[2023-05-04 08:18] LABS: BASOPHILS % (AUTO) 0.2 % (0.0-2.0); EOSINOPHILS % (AUTO) 0.4 % (1.0-6.0); HEMATOCRIT 24.3 % (36-46); HEMOGLOBIN 7.8 g/dL (12.0-16.0); LYMPHOCYTES # (AUTO) 0.9 K/uL (1.0-4.8); LYMPHOCYTES % (AUTO) 7.2 % (22.0-44.0); MEAN CORPUSCULAR HEMOGLOBIN 28.1 pg (26.0-34.0); MEAN CORPUSCULAR HGB CONC 32.2 G/dL (31.0-37.0); MEAN CORPUSCULAR VOLUME 87 fL (80-100); MONOCYTES # (AUTO) 0.9 K/uL (0.1-1.0); MONOCYTES % (AUTO) 7.8 % (2.0-9.0); NEUTROPHILS # (AUTO) 10.1 K/uL (1.8-7.7); NEUTROPHILS % (AUTO) 84.4 % (40.0-70.0); PLATELET COUNT (AUTO) 239 K/uL (150-450); RED BLOOD CELL COUNT(AUTO) 2.78 MIL/uL (4.00-5.20); RED CELL DISTRIBUTION WIDTH 14.9 % (11.5-14.5)
[2023-05-04 08:41] LABS: ALBUMIN 1.8 g/dL (3.4-5.0); BILIRUBIN,TOTAL 0.2 mg/dL (0.1-1.0); CREATININE 2.28 mg/dL (0.60-1.30); MAGNESIUM 1.9 mg/dL (1.80-2.40); PHOSPHORUS 2.9 mg/dL (2.5-4.9); POTASSIUM 3.6 mmol/L (3.5-5.1); TOTAL PROTEIN, SERUM 4.4 g/dL (6.4-8.2)
[2023-05-04] MEDS ORDERED: HEPARIN SODIUM,PORCINE 1,000 UNITS/ML VIAL IVP ONE (14:17)
[2023-05-04 18:46] LABS: GLUCOMETER DEV NAME(LOC) 5S.1B; GLUCOSE,POINT OF CARE 314 MG/DL (70-110)
[2023-05-04 18:46] LABS: GLUCOMETER DEV NAME(LOC) 5S.1B; GLUCOSE,POINT OF CARE 346 MG/DL (70-110)
[2023-05-04 18:46] LABS: GLUCOMETER DEV NAME(LOC) 5S.1B; GLUCOSE,POINT OF CARE 274 MG/DL (70-110)
[2023-05-04 22:51] LABS: GLUCOMETER DEV NAME(LOC) 5N.1C; GLUCOSE,POINT OF CARE 387 MG/DL (70-110)
[2023-05-05] VITALS (18 sets, daily range): BP systolic 136–162; BP diastolic 48–76; PULSE 81–96; RESP 18–22; TEMP 97.7–98.4; O2SAT 96–100
[2023-05-05 06:41] LABS: GLUCOMETER DEV NAME(LOC) 5S.1B; GLUCOSE,POINT OF CARE 365 MG/DL (70-110)
[2023-05-05 07:06] LABS: COMPLEMENT C3 96 mg/dL (82-167); COMPLEMENT C4 27 mg/dL (12-38)
[2023-05-05 07:06] LABS: IGA (IFE) 79 mg/dL (87-352); IGM (IMMUNOFIXATION) 32 mg/dL (26-217)
[2023-05-05 07:11] LABS: CALCIUM, TOTAL 7.9 mg/dL (8.8-10.5); CREATININE 2.5 mg/dL (0.60-1.30); MAGNESIUM 1.9 mg/dL (1.80-2.40); PHOSPHORUS 3.1 mg/dL (2.5-4.9); POTASSIUM 3.9 mmol/L (3.5-5.1)
[2023-05-05] MEDS: HEPARIN SODIUM,PORCINE 1,000 UNITS/ML VIAL IVCATH ONE ×2 (16:17)
[2023-05-05] MEDS ORDERED: DEXTROSE 50%-WATER 25 GM/50 ML SYRINGE IVP PRN (21:15)
[2023-05-05] MEDS: INSULIN LISPRO 100 UNITS/ML SQ PRN (21:54)
[2023-05-05 23:51] LABS: GLUCOMETER DEV NAME(LOC) 5S.1B; GLUCOSE,POINT OF CARE 443 MG/DL (70-110)
[2023-05-06] VITALS (9 sets, daily range): BP systolic 126–163; BP diastolic 61–86; PULSE 80–90; RESP 18–20; TEMP 97.7–98.1; O2SAT 99–100
[2023-05-06 04:11] LABS: GLUCOMETER DEV NAME(LOC) 5N.1C; GLUCOSE,POINT OF CARE 362 MG/DL (70-110)
[2023-05-06 04:11] LABS: GLUCOMETER DEV NAME(LOC) 5N.1C; GLUCOSE,POINT OF CARE 346 MG/DL (70-110)
[2023-05-06 06:21] LABS: GLUCOMETER DEV NAME(LOC) 5N.1C; GLUCOSE,POINT OF CARE 269 MG/DL (70-110)
[2023-05-06 07:06] LABS: GLUCOMETER DEV NAME(LOC) 5S.1B; GLUCOSE,POINT OF CARE 313 MG/DL (70-110)
[2023-05-06 07:26] LABS: CREATININE 2.78 mg/dL (0.60-1.30); MAGNESIUM 1.8 mg/dL (1.80-2.40); POTASSIUM 4.1 mmol/L (3.5-5.1)
[2023-05-06 07:28] LABS: CREATININE 2.78 mg/dL (0.60-1.30)
[2023-05-06] MEDS: METOLAZONE 5 MG TABLET PO ONE (08:55)
[2023-05-06 12:01] LABS: GLUCOMETER DEV NAME(LOC) 5N.1C; GLUCOSE,POINT OF CARE 271 MG/DL (70-110)
[2023-05-06] MEDS ORDERED: HEPARIN SODIUM,PORCINE 1,000 UNITS/ML VIAL IVP ONE (12:29)
[2023-05-06 13:07] LABS: ALBUMIN URINE (ELP) 60.7 %; ALPHA-1 URINE (ELP) 8.1 %
[2023-05-06 19:02] LABS: CREATININE 2.8 mg/dL (0.60-1.30)
[2023-05-06 19:56] LABS: GLUCOMETER DEV NAME(LOC) 5N.1C; GLUCOSE,POINT OF CARE 395 MG/DL (70-110)
[2023-05-06 21:41] LABS: GLUCOMETER DEV NAME(LOC) 5S.1B; GLUCOSE,POINT OF CARE 405 MG/DL (70-110)
[2023-05-06] MEDS: INSULIN GLARGINE,HUM.REC.ANLOG 100 UNITS/ML SQ SCH (21:42)
[2023-05-07] VITALS (23 sets, daily range): BP systolic 119–188; BP diastolic 47–80; PULSE 68–88; RESP 18–20; TEMP 97.2–98.2; O2SAT 99–100
[2023-05-07] MEDS ORDERED: SODIUM CHLORIDE 0.9% 2,000 ML ONE (08:26)
[2023-05-07 09:45] LABS: CALCIUM, TOTAL 8.1 mg/dL (8.8-10.5); CREATININE 2.63 mg/dL (0.60-1.30); MAGNESIUM 1.7 mg/dL (1.80-2.40); PHOSPHORUS 3.2 mg/dL (2.5-4.9); POTASSIUM 4.3 mmol/L (3.5-5.1)
[2023-05-07 10:21] LABS: GLUCOMETER DEV NAME(LOC) 5N.1C; GLUCOSE,POINT OF CARE 262 MG/DL (70-110)
[2023-05-07] MEDS ORDERED: FentaNYL CITRATE PF 100 MCG/2 ML VIAL ONE (15:07)
[2023-05-07] MEDS ORDERED: MIDAZOLAM HCL 2 MG/2 ML VIAL ONE (15:08)
[2023-05-07] MEDS ORDERED: CeFAZolin SODIUM 1 GM VIAL ONE (15:08)
[2023-05-07] MEDS ORDERED: SODIUM BICARBONATE 50 MEQ/50 ML VIAL ONE (15:09)
[2023-05-07] MEDS ORDERED: LIDOCAINE/PF 1% 30 ML VIAL ONE ×2 (15:09→15:20)
[2023-05-07] MEDS ORDERED: LIDOCAINE 1%/EPI 1:200,000/PF 10 ML VIAL ONE ×2 (15:15→18:23)
[2023-05-07] MEDS ORDERED: HEPARIN SODIUM,PORCINE 1,000 UNITS/ML 10 ML VIAL ONE (15:17)
[2023-05-07] MEDS ORDERED: IOHEXOL 300 MG/ML 50 ML VIAL ONE (15:28)
[2023-05-07] MEDS: SODIUM CHLORIDE IVP ONE (16:50)
[2023-05-07] MEDS: IOHEXOL 300 MG/ML 50 ML VIAL IVP ONE (16:50)
[2023-05-07] MEDS: LIDOCAINE/PF 1% 30 ML VIAL PERC ONE (16:57)
[2023-05-07] MEDS: HEPARIN SODIUM,PORCINE 1,000 UNITS/ML VIAL IVP ONE ×2 (16:58)
[2023-05-07] MEDS: LIDOCAINE 1%/EPI 1:200,000/PF 30 ML VIAL SQ ONE (16:59)
[2023-05-07] MEDS: FentaNYL CITRATE PF 100 MCG/2 ML VIAL IVP ONE (17:02)
[2023-05-07] MEDS: MIDAZOLAM HCL 2 MG/2 ML VIAL IVP ONE (17:02)
[2023-05-07] MEDS: HEPARIN SODIUM,PORCINE 1,000 UNITS/ML 10 ML VIAL IVP ONE (17:13)
[2023-05-07] MEDS ORDERED: HEPARIN SODIUM,PORCINE 1,000 UNITS/ML VIAL IVP ONE (17:54)
[2023-05-07 18:02] LABS: GLUCOMETER DEV NAME(LOC) 5S.1B; GLUCOSE,POINT OF CARE 138 MG/DL (70-110)
[2023-05-07] MEDS: LIDOCAINE 1% 30 ML/SOD BICARB 8.4% 4 ML SQ ONE (18:16)
[2023-05-07] MEDS: LIDOCAINE 1%/EPI 1:200,000/PF 30 ML VIAL PERC ONE (18:19)
[2023-05-07] MEDS: LIDOCAINE 1%/EPI 1:200,000/PF 10 ML VIAL PERC ONE (18:24)
[2023-05-07] MEDS ORDERED: SODIUM CHLORIDE 0.9% 1,000 ML ONE (19:33)
[2023-05-08] VITALS (8 sets, daily range): BP systolic 126–143; BP diastolic 57–66; PULSE 76–86; RESP 18; TEMP 97.9–98.5; O2SAT 100
[2023-05-08 12:09] LABS: GLUCOMETER DEV NAME(LOC) 5N.1C; GLUCOSE,POINT OF CARE 201 MG/DL (70-110)
[2023-05-08 12:09] LABS: GLUCOMETER DEV NAME(LOC) 5N.1C; GLUCOSE,POINT OF CARE 153 MG/DL (70-110)
[2023-05-08 20:28] LABS: GLUCOMETER DEV NAME(LOC) 5S.1B; GLUCOSE,POINT OF CARE 177 MG/DL (70-110)
[2023-05-08 20:29] LABS: GLUCOMETER DEV NAME(LOC) 5N.1C; GLUCOSE,POINT OF CARE 152 MG/DL (70-110)
[2023-05-08 22:13] LABS: GLUCOMETER DEV NAME(LOC) 5S.1B; GLUCOSE,POINT OF CARE 264 MG/DL (70-110)
[2023-05-09] VITALS (16 sets, daily range): BP systolic 106–165; BP diastolic 53–75; PULSE 80–96; RESP 16–20; TEMP 98.4–99.5; O2SAT 99
[2023-05-09 07:18] LABS: GLUCOMETER DEV NAME(LOC) 5S.1B; GLUCOSE,POINT OF CARE 198 MG/DL (70-110)
[2023-05-09 20:43] LABS: GLUCOMETER DEV NAME(LOC) 5N.1C; GLUCOSE,POINT OF CARE 150 MG/DL (70-110)
[2023-05-09 20:43] LABS: GLUCOMETER DEV NAME(LOC) 5N.1C; GLUCOSE,POINT OF CARE 196 MG/DL (70-110)
[2023-05-09 20:57] LABS: GLUCOMETER DEV NAME(LOC) 5S.1B; GLUCOSE,POINT OF CARE 195 MG/DL (70-110)
[2023-05-10] VITALS (8 sets, daily range): BP systolic 118–147; BP diastolic 46–62; PULSE 83–91; RESP 18–20; TEMP 98.4–99.8; O2SAT 99
[2023-05-10 06:32] LABS: GLUCOMETER DEV NAME(LOC) 5S.1B; GLUCOSE,POINT OF CARE 234 MG/DL (70-110)
[2023-05-10 22:27] LABS: GLUCOMETER DEV NAME(LOC) 5S.1B; GLUCOSE,POINT OF CARE 135 MG/DL (70-110)
[2023-05-10 22:27] LABS: GLUCOMETER DEV NAME(LOC) 5S.1B; GLUCOSE,POINT OF CARE 164 MG/DL (70-110)
[2023-05-10 22:27] LABS: GLUCOMETER DEV NAME(LOC) 5N.1C; GLUCOSE,POINT OF CARE 171 MG/DL (70-110)
[2023-05-11] VITALS (15 sets, daily range): BP systolic 116–148; BP diastolic 44–95; PULSE 85–98; RESP 18–21; TEMP 97.2–101.9; O2SAT 97–100
[2023-05-11 09:39] LABS: BASOPHILS % (AUTO) 0.5 % (0.0-2.0); EOSINOPHILS % (AUTO) 2.5 % (1.0-6.0); LYMPHOCYTES # (AUTO) 0.6 K/uL (1.0-4.8); LYMPHOCYTES % (AUTO) 5.2 % (22.0-44.0); MEAN CORPUSCULAR HEMOGLOBIN 28.3 pg (26.0-34.0); MEAN CORPUSCULAR HGB CONC 32.4 G/dL (31.0-37.0); MEAN CORPUSCULAR VOLUME 87 fL (80-100); MONOCYTES # (AUTO) 1.3 K/uL (0.1-1.0); MONOCYTES % (AUTO) 11.2 % (2.0-9.0); NEUTROPHILS # (AUTO) 9.7 K/uL (1.8-7.7); NEUTROPHILS % (AUTO) 80.6 % (40.0-70.0); PLATELET COUNT (AUTO) 273 K/uL (150-450); RED BLOOD CELL COUNT(AUTO) 2.29 MIL/uL (4.00-5.20)
[2023-05-11 09:46] LABS: HEMOGLOBIN 6.5 g/dL (12.0-16.0)
[2023-05-11] MEDS ORDERED: SODIUM CHLORIDE 0.9% 250 ML IV ONE (12:25)
[2023-05-11 18:32] LABS: GLUCOMETER DEV NAME(LOC) 5S.1B; GLUCOSE,POINT OF CARE 264 MG/DL (70-110)
[2023-05-11 18:32] LABS: GLUCOMETER DEV NAME(LOC) 5S.1B; GLUCOSE,POINT OF CARE 117 MG/DL (70-110)
[2023-05-11 18:37] LABS: GLUCOMETER DEV NAME(LOC) 5N.1C; GLUCOSE,POINT OF CARE 175 MG/DL (70-110)
[2023-05-12] VITALS (18 sets, daily range): BP systolic 124–164; BP diastolic 59–75; PULSE 81–94; RESP 17–20; TEMP 98–101.2; O2SAT 100
[2023-05-12 09:12] LABS: GLUCOMETER DEV NAME(LOC) 5N.1C; GLUCOSE,POINT OF CARE 234 MG/DL (70-110)
[2023-05-12 09:12] LABS: GLUCOMETER DEV NAME(LOC) 5N.1C; GLUCOSE,POINT OF CARE 150 MG/DL (70-110)
[2023-05-12] MEDS ORDERED: SODIUM CHLORIDE 0.9% 1,000 ML ONE (10:14)
[2023-05-12 11:39] LABS: GLOMERULAR FILTR. RATE CALC > 60 mL/min (>60); UREA NITROGEN, BLOOD 9 mg/dL (7-18)
[2023-05-12] MEDS ORDERED: HEPARIN SODIUM,PORCINE 1,000 UNITS/ML VIAL IVP ONE (12:00)
[2023-05-12 13:43] LABS: GLUCOMETER DEV NAME(LOC) 5N.1C; GLUCOSE,POINT OF CARE 111 MG/DL (70-110)
[2023-05-12] MEDS: HEPARIN SODIUM,PORCINE 1,000 UNITS/ML VIAL IVP PRN ×2 (14:45)
[2023-05-12 16:20] LABS: BASOPHILS % (AUTO) 1.3 % (0.0-2.0); EOSINOPHILS % (AUTO) 2.5 % (1.0-6.0); HEMATOCRIT 23.9 % (36-46); HEMOGLOBIN 7.9 g/dL (12.0-16.0); LYMPHOCYTES # (AUTO) 0.5 K/uL (1.0-4.8); LYMPHOCYTES % (AUTO) 4.4 % (22.0-44.0); MEAN CORPUSCULAR HGB CONC 33.2 G/dL (31.0-37.0); MEAN CORPUSCULAR VOLUME 87 fL (80-100); MONOCYTES # (AUTO) 1.4 K/uL (0.1-1.0); MONOCYTES % (AUTO) 11.8 % (2.0-9.0); NEUTROPHILS # (AUTO) 9.6 K/uL (1.8-7.7); PLATELET COUNT (AUTO) 284 K/uL (150-450); RED BLOOD CELL COUNT(AUTO) 2.73 MIL/uL (4.00-5.20); RED CELL DISTRIBUTION WIDTH 15.2 % (11.5-14.5)
[2023-05-12 21:47] LABS: GLUCOMETER DEV NAME(LOC) 5N.1C; GLUCOSE,POINT OF CARE 274 MG/DL (70-110)
[2023-05-13] VITALS (8 sets, daily range): BP systolic 122–165; BP diastolic 53–78; PULSE 72–90; RESP 16–18; TEMP 97.8–99.2; O2SAT 98–100
[2023-05-13 08:37] LABS: BASOPHILS % (AUTO) 1.3 % (0.0-2.0); EOSINOPHILS % (AUTO) 3.6 % (1.0-6.0); HEMATOCRIT 22.7 % (36-46); HEMOGLOBIN 7.6 g/dL (12.0-16.0); LYMPHOCYTES # (AUTO) 0.9 K/uL (1.0-4.8); LYMPHOCYTES % (AUTO) 9.9 % (22.0-44.0); MEAN CORPUSCULAR HEMOGLOBIN 29.5 pg (26.0-34.0); MEAN CORPUSCULAR HGB CONC 33.6 G/dL (31.0-37.0); MEAN CORPUSCULAR VOLUME 88 fL (80-100); MONOCYTES # (AUTO) 1.2 K/uL (0.1-1.0); MONOCYTES % (AUTO) 13.8 % (2.0-9.0); NEUTROPHILS # (AUTO) 6.3 K/uL (1.8-7.7); NEUTROPHILS % (AUTO) 71.4 % (40.0-70.0); PLATELET COUNT (AUTO) 284 K/uL (150-450); RED BLOOD CELL COUNT(AUTO) 2.59 MIL/uL (4.00-5.20); WHITE BLOOD COUNT (AUTO) 8.8 K/uL (4.5-11.0)
[2023-05-13 08:46] LABS: CALCIUM, TOTAL 8.3 mg/dL (8.8-10.5); CREATININE 2.13 mg/dL (0.60-1.30); POTASSIUM 3.6 mmol/L (3.5-5.1)
[2023-05-13 12:25] LABS: GLUCOMETER DEV NAME(LOC) 5S.1B; GLUCOSE,POINT OF CARE 191 MG/DL (70-110)
[2023-05-13] MEDS: NITROGLYCERIN 0.4 MG SUBLINGUAL TABLET #25 SL PRN (15:12)
[2023-05-13 17:00] LABS: TROPONIN I-HIGH SENSITIVITY 45 ng/L (<51)
[2023-05-13 18:06] LABS: GLUCOMETER DEV NAME(LOC) 5N.1C; GLUCOSE,POINT OF CARE 136 MG/DL (70-110)
[2023-05-13 18:06] LABS: GLUCOMETER DEV NAME(LOC) 5N.1C; GLUCOSE,POINT OF CARE 216 MG/DL (70-110)
[2023-05-13 21:30] LABS: GLUCOMETER DEV NAME(LOC) 5S.1B; GLUCOSE,POINT OF CARE 189 MG/DL (70-110)
[2023-05-14 00:49] VITALS: BP 130/56; PULSE 92; RESP 20; TEMP 98.6
[2023-05-14 06:08] VITALS: BP 141/52; PULSE 85; RESP 19; TEMP 99
[2023-05-14 07:21] VITALS: BP 140/56; PULSE 80; RESP 18; TEMP 98.9
[2023-05-14 07:59] LABS: BASOPHILS % (AUTO) 0.5 % (0.0-2.0); EOSINOPHILS % (AUTO) 4.2 % (1.0-6.0); HEMATOCRIT 21.8 % (36-46); HEMOGLOBIN 7.2 g/dL (12.0-16.0); LYMPHOCYTES # (AUTO) 0.9 K/uL (1.0-4.8); LYMPHOCYTES % (AUTO) 9.8 % (22.0-44.0); MEAN CORPUSCULAR HEMOGLOBIN 29.2 pg (26.0-34.0); MEAN CORPUSCULAR HGB CONC 33.2 G/dL (31.0-37.0); MEAN CORPUSCULAR VOLUME 88 fL (80-100); MONOCYTES # (AUTO) 1.1 K/uL (0.1-1.0); MONOCYTES % (AUTO) 12.6 % (2.0-9.0); NEUTROPHILS # (AUTO) 6.4 K/uL (1.8-7.7); NEUTROPHILS % (AUTO) 72.9 % (40.0-70.0); PLATELET COUNT (AUTO) 286 K/uL (150-450); RED BLOOD CELL COUNT(AUTO) 2.48 MIL/uL (4.00-5.20); RED CELL DISTRIBUTION WIDTH 14.9 % (11.5-14.5); WHITE BLOOD COUNT (AUTO) 8.8 K/uL (4.5-11.0)
[2023-05-14 08:16] LABS: CREATININE 2.4 mg/dL (0.60-1.30); POTASSIUM 4.2 mmol/L (3.5-5.1)
[2023-05-14 08:20] LABS: GLUCOMETER DEV NAME(LOC) 5N.1C; GLUCOSE,POINT OF CARE 138 MG/DL (70-110)
== END 2023-05-14 09:00 | DRG 194 ==
LOC: EMS 10:42 → AHU 13:05 → 5N 18:12 → ICU 04-29 13:30 → 5N 05-01 15:00
PROVIDERS: ADMIT Internal Medicine; ATTEND Internal Medicine
PROC: 5A09457 Assistance with Respiratory Ventilation, 24-96 Consecutive Hours, Continuous Positive Airway Pressure (ICD-10-PCS; 2023-04-29)
PROC: B54BZZA Ultrasonography of Right Lower Extremity Veins, Guidance (ICD-10-PCS; 2023-04-30)
PROC: 06HY33Z Insertion of Infusion Device into Lower Vein, Percutaneous Approach (ICD-10-PCS; 2023-04-30)
PROC: 5A09357 Assistance with Respiratory Ventilation, Less than 24 Consecutive Hours, Continuous Positive Airway Pressure (ICD-10-PCS; 2023-04-30)
PROC: 5A1D70Z Performance of Urinary Filtration, Intermittent, Less than 6 Hours Per Day (ICD-10-PCS; 2023-04-30)
PROC: 5A1D70Z Performance of Urinary Filtration, Intermittent, Less than 6 Hours Per Day (ICD-10-PCS; 2023-05-01)
PROC: 5A1D70Z Performance of Urinary Filtration, Intermittent, Less than 6 Hours Per Day (ICD-10-PCS; 2023-05-02)
PROC: 5A1D70Z Performance of Urinary Filtration, Intermittent, Less than 6 Hours Per Day (ICD-10-PCS; 2023-05-04)
PROC: 5A1D70Z Performance of Urinary Filtration, Intermittent, Less than 6 Hours Per Day (ICD-10-PCS; 2023-05-05)
PROC: 0JH63XZ Insertion of Tunneled Vascular Access Device into Chest Subcutaneous Tissue and Fascia, Percutaneous Approach (ICD-10-PCS; principal; 2023-05-07)
PROC: 02H633Z Insertion of Infusion Device into Right Atrium, Percutaneous Approach (ICD-10-PCS; 2023-05-07)
PROC: B518ZZA Fluoroscopy of Superior Vena Cava, Guidance (ICD-10-PCS; 2023-05-07)
PROC: B548ZZA Ultrasonography of Superior Vena Cava, Guidance (ICD-10-PCS; 2023-05-07)
PROC: 5A1D70Z Performance of Urinary Filtration, Intermittent, Less than 6 Hours Per Day (ICD-10-PCS; 2023-05-07)
PROC: 5A1D70Z Performance of Urinary Filtration, Intermittent, Less than 6 Hours Per Day (ICD-10-PCS; 2023-05-09)
PROC: 30233N1 Transfusion of Nonautologous Red Blood Cells into Peripheral Vein, Percutaneous Approach (ICD-10-PCS; 2023-05-11)
PROC: 5A1D70Z Performance of Urinary Filtration, Intermittent, Less than 6 Hours Per Day (ICD-10-PCS; 2023-05-12)
DX: I11.0 Hypertensive heart disease with heart failure (principal); J96.01 Acute respiratory failure with hypoxia; J96.02 Acute respiratory failure with hypercapnia; N17.9 Acute kidney failure, unspecified; E44.0 Moderate protein-calorie malnutrition; E11.649 Type 2 diabetes mellitus with hypoglycemia without coma; I69.354 Hemiplegia and hemiparesis following cerebral infarction affecting left non-dominant side; E11.22 Type 2 diabetes mellitus with diabetic chronic kidney disease; D64.9 Anemia, unspecified; N18.6 End stage renal disease; I50.33 Acute on chronic diastolic (congestive) heart failure; F32.A Depression, unspecified; G43.909 Migraine, unspecified, not intractable, without status migrainosus; I25.10 Atherosclerotic heart disease of native coronary artery without angina pectoris; I65.29 Occlusion and stenosis of unspecified carotid artery; E78.5 Hyperlipidemia, unspecified; I34.0 Nonrheumatic mitral (valve) insufficiency; R00.1 Bradycardia, unspecified; E87.6 Hypokalemia; F41.9 Anxiety disorder, unspecified; E66.9 Obesity, unspecified; Z20.822 Contact with and (suspected) exposure to COVID-19; Z53.29 Procedure and treatment not carried out because of patient's decision for other reasons; E87.5 Hyperkalemia; N25.81 Secondary hyperparathyroidism of renal origin; Z79.4 Long term (current) use of insulin; Z82.49 Family history of ischemic heart disease and other diseases of the circulatory system; Z99.2 Dependence on renal dialysis; Z83.3 Family history of diabetes mellitus; Z90.710 Acquired absence of both cervix and uterus; Z98.891 History of uterine scar from previous surgery; Z95.1 Presence of aortocoronary bypass graft; Z79.899 Other long term (current) drug therapy; Z68.35 Body mass index [BMI] 35.0-35.9, adult
CPT/HCPCS: 0241U; 36561; 36600; 71045; 76001; 76770; 76937; 80048; 80053; 81001; 81002; 82271; 82306; 82565; 82570; 82728; 82784; 82805; 82962; 83036; 83540; 83550; 83735; 83880; 83970; 84100; 84132; 84156; 84166; 84300; 84443; 84484; 84520; 84540; 85025; 85610; 85730; 86160; 86162; 86334; 86850; 86900; 86901; 86923; 87040; 87086; 87186; 87340; 90935; 92610; 93005; 93306; 93970; 94640; 94660; 97110; 97112; 97163; 97530; 99291; J0360; J0690; J0885; J1205; J1644; J1815; J1940; J2250; J2930; J3010; J3490; J7030; J7050; P9016; P9046; Q9967; 36415-L1; 36415-TC; J7613